=== PATIENT | female | born 1960 | race Caucasian/White ===

== ENCOUNTER 2020-07-21 10:03 | Emergency (ER) | payer OTHER, MEDICAID ==
[~2020-07-21] VITALS: Ht 170.2 cm; Wt 62.0 kg
[2020-07-21] MEDS ORDERED: ONDANSETRON 4MG ODT PO ONE (10:30)
[2020-07-21] MEDS ORDERED: HYDROCODONE/ACETAMINOPHEN 5/325MG TABLET PO ONE (10:30)
[2020-07-21] MEDS ORDERED: KETOROLAC 60MG/2ML VIAL IM ONE (10:30)
[2020-07-21 12:06] VITALS: BP 132/78
== END 2020-07-21 12:06 | disposition home or self-care (01) ==
LOC: ER 10:18
DX: G43.909 Migraine, unspecified, not intractable, without status migrainosus (principal); R11.0 Nausea; E78.00 Pure hypercholesterolemia, unspecified; I10 Essential (primary) hypertension; Z98.890 Other specified postprocedural states
CPT/HCPCS: 96372; 99283; J1885; Q0162

== ENCOUNTER 2021-12-17 13:17 | Emergency (ER) | payer MEDICAID, OTHER ==
[~2021-12-17] VITALS: Ht 167.6 cm; Wt 42.1 kg
[~2021-12-17 13:17] MED LIST: ATOR40TA70 PO; FAMO20TA8 MT; GABA-532 PO; KEPP500 PO; TOPI50TA MT
[2021-12-17 14:06] LABS: BASOPHILS % 0.1 % (0.0-2.0); EOSINOPHILS % 3.5 % (0.0-5.0); HEMATOCRIT. 33.3 % (36.0-48.0); HEMOGLOBIN. 11.2 g/dL (12.0-16.0); LYMPHOCYTES % 35.2 % (20.0-50.0); MEAN CORPUSCULAR VOLUME 109.9 fL (81.0-99.0); MEAN PLATELET VOLUME 8.6 fl (7.4-10.4); MONOCYTES % 9.7 % (2.0-8.0); NEUTROPHILS % 51.5 % (40.0-76.0); PLATELET 135 x1000/uL (130-400); RED BLOOD CELL COUNT 3.03 mill/uL (4.2-5.4); RED CELL DISTRIBUTION WIDTH 12.7 % (11.6-14.6)
[2021-12-17 14:11] LABS: CHLORIDE 111 mEq/L (98-107)
[2021-12-17 14:17] LABS: ETHANOL BLOOD < 10 mg/dL
[2021-12-17] MEDS ORDERED: IOHEXOL-350 100 ML BOTTLE ONE (14:33)
[2021-12-17] MEDS ORDERED: LEVETIRACETAM 1000MG PREMIX 100 ML IV ONE (17:15)
[2021-12-17 18:03] LABS: CLARITY URINE CLEAR (CLEAR); COLOR URINE YELLOW (YELLOW); KETONES URINE NEGATIVE (NEGATIVE); LEUKOCYTE ESTERASE URINE NEGATIVE (NEGATIVE); NITRITE URINE NEGATIVE (NEGATIVE); OCCULT BLOOD URINE NEGATIVE (NEGATIVE); PH URINE 6.5 (4.5-8.0); PROTEIN URINE NEGATIVE (NEGATIVE); SPECIFIC GRAVITY URINE 1.048 (1.005-1.030); UROBILINOGEN URINE 0.2 E.U./dL (0.2-1.0)
[2021-12-17 18:14] LABS: *AMPHETAMINES SCREEN URINE NEGATIVE (NEGATIVE)
[2021-12-17 18:15] LABS: *BARBITURATES SCREEN URINE NEGATIVE (NEGATIVE); *BENZODIAZEPINES SCREEN URINE NEGATIVE (NEGATIVE); *COCAINE SCREEN URINE NEGATIVE (NEGATIVE); CANNABINOID URINE SCREEN PRESUMTIVE POSITIVE (NEGATIVE); METHADONE URINE SCREEN NEGATIVE (NEGATIVE); OPIATES URINE SCREEN NEGATIVE (NEGATIVE); PHENCYCLIDINE URINE SCREEN NEGATIVE (NEGATIVE)
[2021-12-17] MEDS ORDERED: NICARDIPINE 100 MG in SODIUM CHLORIDE 0.9% 60 ML IV PRN ×2 (18:30→18:45)
[2021-12-17 20:21] VITALS: BP 101/72
[2021-12-18] MEDS ORDERED: DEXAMETHASONE 4MG/ML 1ML VIAL IV SCH
== END 2021-12-17 20:44 | disposition short-term general hospital (02) ==
LOC: ER 13:24 → CANBEDREQ 22:01
DX: R55 Syncope and collapse (principal); Z85.6 Personal history of leukemia; Z79.899 Other long term (current) drug therapy
CPT/HCPCS: 31500; 36415; 70450; 70496; 70498; 71045; 80053; 80305; 80320; 81003; 83605; 84484; 85025; 86703; 86705; 86709; 86803; 87340; 93005; 96365; 99291; J1953; J3490; J7050; Q9967; G0480

== ENCOUNTER 2022-11-11 18:34 | Emergency (ER) | payer MEDICAID ==
[~2022-11-11] VITALS: Ht 162.6 cm; Wt 52.0 kg
[2022-11-11] MEDS ORDERED: ACETAMINOPHEN 325MG TABLET PO ONE (19:15)
[2022-11-11] MEDS ORDERED: LIDOCAINE 5% PATCH TOP SCH (19:15)
[2022-11-11] MEDS ORDERED: KETOROLAC 30MG/ML VIAL IM ONE (19:15)
[2022-11-11] MEDS ORDERED: LIDO1ADH23 TP (20:22)
[2022-11-11] MEDS ORDERED: IBUP-2028 MT (20:22)
[2022-11-11] MEDS ORDERED: TOPUD PO (20:22)
[2022-11-11 20:50] VITALS: BP 105/71
== END 2022-11-11 20:50 | disposition home or self-care (01) ==
LOC: ER 19:00
DX: R10.31 Right lower quadrant pain (principal); F12.10 Cannabis abuse, uncomplicated; E78.00 Pure hypercholesterolemia, unspecified; Z98.890 Other specified postprocedural states
CPT/HCPCS: 72100; 73502; 73552; 99284